=== PATIENT | male | born 1955 | race Caucasian/White ===

== ENCOUNTER 2016-06-08 13:40 | Day surgery (SDC) | payer BC ==
[~2016-06-08] VITALS: Ht 170.2 cm; Wt 67.3 kg
[2016-06-08] MEDS ORDERED: ALLEGRA-D 24HR1 T24 PO (14:03)
[2016-06-08] MEDS ORDERED: MOTRIN 200200 MG/TAB PO (14:04)
[2016-06-08 14:17] VITALS: BP 120/73; PULSE 78; TEMP 98.7
[2016-06-08 15:30] VITALS: BP 97/69; PULSE 63; TEMP 98
[2016-06-08 15:45] VITALS: BP 93/72; PULSE 71
[2016-06-08 16:00] VITALS: BP 92/63; PULSE 61
[2016-06-08 16:15] VITALS: BP 101/72; PULSE 74
== END 2016-06-08 16:43 | disposition home or self-care (01) ==
LOC: SDCO 13:40
DX: Z12.11 Encounter for screening for malignant neoplasm of colon (principal)
CPT/HCPCS: OP; J2250; J3010; J7030

== ENCOUNTER 2020-06-19 11:29 | Day surgery (SDC) | payer BC ==
[2020-06-19] VITALS (407 sets, daily range): BP systolic 101–124; BP diastolic 55–80; PULSE 50–74; TEMP 98–98.9; O2SAT 86–100
[~2020-06-19] VITALS: Ht 170.2 cm; Wt 59.3 kg
[~2020-06-19 11:29] MED LIST: ALLEGRA-D 24HR1 T24 PO; MOTRIN 200200 MG/TAB PO
[2020-06-19] MEDS ORDERED: ASPIRIN E.C. 8181 MG PO (11:55)
[2020-06-19] MEDS ORDERED: IMDUR 30MG30 MG/TAB PO (11:56)
[2020-06-19] MEDS ORDERED: TOPROL XL 50MG50 MG PO (11:57)
[2020-06-19 12:20] LABS: CALCIUM 8.8 mg/dL (8.4-10.2); CREATININE, serum 0.94 (0.66-1.25); POTASSIUM 4.3 mmol/L (3.4-5.0)
[2020-06-19 12:22] LABS: INR 1.1 (0.8-3.0); PROTHROMBIN TIME 12.6 SECONDS (9.7-12.8)
[2020-06-19 12:25] LABS: PARTIAL THROMBOPLASTIN TIME 28.4 SECONDS (26.0-37.0)
[2020-06-19 12:32] LABS: HEMATOCRIT 41.1 % (42.0-52.0); HEMOGLOBIN 13.9 g/dl (13.5-18.0); MEAN CELL VOLUME 88 fl (80.0-100.0); MEAN CORPUSCULAR HEMOGLOBIN 30 pg (27.0-31.0); MEAN CORPUSCULAR HGB CONC 34 g/dl (33.0-37.0); MEAN PLATELET VOLUME 10.6 fl (7.4-10.4); PLATELET COUNT 269 K/mm3 (130-400); RED BLOOD COUNT 4.66 M/mm3 (4.20-5.60)
--- NOTE | 2020-06-19 13:32 | NUR ---
Initial visit; Patient request, [employer] offered encouragement and prayer for Ru prior to his surgical procedure. Patient thanked [employer] for visit.
--- NOTE | 2020-06-19 14:33 | NUR ---
RECEIVED REPORT FROM CHAR SONG IN [place] [facility]. AWAITING ARRIVAL OF PT TO ICU 3.
--- NOTE | 2020-06-19 14:38 | NUR ---
PT ARRIVES TO ICU 3 VIA STRETCHER IN [place]. PT ON RA. PLACED ON BEDSIDE CONTINUOUS MONITOR. CALL LIGHT WITHIN REACH. VSS. EDUCATED PT ON POC, VERBALIZED UNDERSTANDING. RT GROIN ACCESS SITE C/D/I.
--- NOTE | 2020-06-19 18:45 | NUR ---
FLAT TIME WAS UP AT 1815. ALLOWED PT TO STAND TO USE URINAL. NOTED ONCE PT WAS DONE WITH URINAL AND EATING DINNER. GAUZE ON RT GROIN WAS 3/4 FULL. DRESSING TAKEN OFF AND JS PRESSURE APPLIED TO RT GROIN FOR 5 MINS. NEW GAUZE AND TEGADERM PLACED. SPOKE WITH PT ABOUT STAYING NO MORE THAN 15 DEGREES FOR A COUPLE HOURS AND HOLDING GROIN SITE WITH COUGHS TO HELP THE SITE FROM OOZING. PT VERBALIZED UNDERSTANDING.
--- NOTE | 2020-06-19 20:00 | NUR ---
Assessment complete and charted. Right femoral site CDI. Denies any pains at this time. Call light in reach.
[2020-06-20] VITALS (380 sets, daily range): BP systolic 93–106; BP diastolic 56–67; PULSE 55–78; TEMP 97.8–98; O2SAT 94–100
[2020-06-20 05:25] LABS: BASO # 0.1 (0.0-0.2); BASO % 0.7 % (0.0-2.0); EOS # 0.4 (0.0-0.7); EOS % 5.8 % (0-4.0); GRAN # 5.3 (1.4-6.5); GRAN % 70.7 % (42.2-75.2); HEMATOCRIT 42.3 % (42.0-52.0); HEMOGLOBIN 13.9 g/dl (13.5-18.0); LYMPH # 1.1 (1.2-3.4); LYMPH % 14.7 % (20.0-51.0); MEAN CELL VOLUME 90 fl (80.0-100.0); MEAN CORPUSCULAR HEMOGLOBIN 30 pg (27.0-31.0); MEAN CORPUSCULAR HGB CONC 33 g/dl (33.0-37.0); MEAN PLATELET VOLUME 10.5 fl (7.4-10.4); MONO # 0.6 (0.1-0.6); MONO % 7.8 % (1.7-9.3); PLATELET COUNT 241 K/mm3 (130-400); RED BLOOD COUNT 4.68 M/mm3 (4.20-5.60); REDCELL DISTRIBUTION WIDTH-CV 12.1 % (11.5-14.5)
[2020-06-20 05:44] LABS: CALCIUM 8.6 mg/dL (8.4-10.2); CREATININE, serum 0.95 (0.66-1.25)
--- NOTE | 2020-06-20 06:15 | NUR ---
Patient had uneventful night. Right femoral site remains CDI. Denies needs this AM. Call light in reach.
--- NOTE | 2020-06-20 07:00 | NUR ---
Report received from CHAR Elena
--- NOTE | 2020-06-20 07:20 | NUR ---
Report given to CHAR Murdock
--- NOTE | 2020-06-20 10:15 | NUR ---
Follow-up visit; Patient thanked [employer] for looking in on him again this morning. Patient doing well and states his main concern is with his who is also hospitalized. [employer] offered God's blessings for both of them and to keep them in her prayers.
[2020-06-20] MEDS ORDERED: BRILINTA90 MG PO (10:37)
[2020-06-20] MEDS ORDERED: LIPITOR 80MG80 MG PO (10:37)
--- NOTE | 2020-06-20 12:00 | NUR ---
DISCHARGE PACKET, MEDICATIONS, FOLLOW UP APPTS AND RESTRICTIONS FOR GROIN SITE REVIEWED WITH THE PATIENT. HE VERBALIZES UNDERSTANDING AFTER EXTENSIVE CONVERSATION AND EDUCATION. PATIENT REQUESTS TO GO TO HIS 'S ROOM ON THIRD FLOOR UPON DISCHARGE. PATIENT TAKE UP TO ROOM 335 AND HIS FRIEND WILL DRIVE HIM HOME LATER.
== END 2020-06-20 11:50 | disposition home or self-care (01) ==
LOC: COL.CAR 11:29 → ICU 14:50 → COL.CAR 06-20 11:50
PROVIDERS: Internal Medicine Cardiovascular Disease
DX: I25.110 Atherosclerotic heart disease of native coronary artery with unstable angina pectoris (principal); I08.1 Rheumatic disorders of both mitral and tricuspid valves; I37.1 Nonrheumatic pulmonary valve insufficiency; Z20.822 Contact with and (suspected) exposure to COVID-19
CPT/HCPCS: OP; C1725; C1760; C1769; C1874; C1887; C1894; C9600; J0583; J1644; J2250; J3010

== ENCOUNTER 2020-08-22 17:02 | Outpatient (RCR) | payer BC ==
[~2020-08-22 17:02] MED LIST changes: +ASPIRIN E.C. 8181 MG PO; +BRILINTA90 MG PO; +IMDUR 30MG30 MG/TAB PO; +LIPITOR 80MG80 MG PO; +TOPROL XL 50MG50 MG PO
== END 2020-10-01 | disposition home or self-care (01) ==
LOC: COL.CR
DX: Z48.812 Encounter for surgical aftercare following surgery on the circulatory system (principal); Z95.5 Presence of coronary angioplasty implant and graft